=== PATIENT | male | born 1950 | race Two or more races ===

== ENCOUNTER 2022-06-09 05:20 | Inpatient (IN) | payer OTHER, MEDICAID ==
[~2022-06-09] VITALS: Ht 165.1 cm; Wt 69.8 kg
[2022-06-09 05:57] LABS: Basophils # (auto) 0 10 ^3/uL (0-0.2); Basophils % (auto) 0.5 % (0.0-2.0); Eosinophils # (auto) 0.3 10 ^3/uL (0-0.8); Eosinophils % (auto) 3.7 % (0.0-7.0); Hematocrit 46.1 % (41.0-53.0); Hemoglobin 15.8 g/dL (13.5-17.5); Lymphocytes % (auto) 41.2 % (10.0-50.0); Mean Corpuscular Hemoglobin 29.5 pg (28.0-32.0); Mean Corpuscular Hgb Conc. 34.4 g/dL (32.0-36.0); Mean Corpuscular Volume 85.7 fL (80.0-100.0); Monocytes # (auto) 0.4 10 ^3/uL (0-1.3); Monocytes % (auto) 5.8 % (0.0-12.0); Neutrophils # (auto) 3.5 10 ^3/uL (1.6-8.6); Neutrophils % (auto) 48.8 % (37.0-80.0); Nucleated Red Blood Cells % 0.1 %; Red Blood Cells 5.38 10^6/uL (4.5-5.90); Red Cell Distribution Width 13.6 % (11.8-14.3); White Blood Cell 7.2 10^3/uL (4.4-10.8)
[2022-06-09 06:16] LABS: Albumin 3.5 g/dL (3.4-5.0); Calcium 8.5 mg/dL (8.5-10.1)
[2022-06-09 06:20] LABS: BUN/Creatinine Ratio 16.2; Bilirubin, Total 0.6 mg/dL (0.2-1.0); Total Protein 6.8 g/dL (6.4-8.2)
[2022-06-09] MEDS ORDERED: SODIUM CHLORIDE 0.9% 1,000 ML IV ONE ×2 (06:30→06:45)
[2022-06-09] MEDS ORDERED: ASPirin 81 mg TAB PO ONE (06:30)
[2022-06-09] MEDS ORDERED: NITROGLYCERIN 0.4 MG SL TAB SL ONE (06:45)
[2022-06-09 07:05] LABS: INR 0.99 (0.9-1.15); Partial Thromboplastin Time 27.9 sec (24.6-33.4)
[2022-06-09] MEDS ORDERED: ENOXAPARIN SOD 60 MG/0.6 ML SYRINGE SC ONE (07:30)
[2022-06-09 08:28] LABS: Urine Bacteria NONE SEEN /hpf (None Seen); Urine Blood Negative /uL (Negative); Urine Hyaline Cast FEW /lpf (0 - 2); Urine Specific Gravity 1.024 (1.001-1.035); Urine WBC 2 /hpf (0 - 3)
[2022-06-09] MEDS ORDERED: HEPARIN DRIP/D5W 100UNITS/ML 250 ML IV SCH (11:45)
[2022-06-09] MEDS ORDERED: CLOPIDOGREL 300 MG TAB PO ONE (11:45)
[2022-06-09] MEDS ORDERED: NITROGLYCERIN 50MG/250ML 250 ML IV ONE (11:45)
[2022-06-09] MEDS ORDERED: MORPHINE SULFATE INJ 2 MG/ml SYRG IV PRN (11:45)
[2022-06-09 14:05] LABS: INR 1.02 (0.9-1.15); Partial Thromboplastin Time 29.4 sec (24.6-33.4)
[2022-06-09] MEDS ORDERED: EPTIFIBATIDE INJ (2MG/ML) 10ML VIAL IV ONE (15:15)
[2022-06-09] MEDS: EPTIFIBATIDE DRIP(0.75MG/ML) 100 ML IV SCH (16:07)
[2022-06-09 20:00] LABS: INR 1.08 (0.9-1.15)
[2022-06-09] MEDS: ATORVASTATIN 20 MG TAB PO SCH (22:05)
[2022-06-10] VITALS (13 sets, daily range): BP systolic 94–130; BP diastolic 60–85
[2022-06-10] MEDS: EPTIFIBATIDE DRIP(0.75MG/ML) 100 ML IV SCH ×2 (00:26→08:08)
[2022-06-10 03:50] LABS: INR 1.03 (0.9-1.15); Partial Thromboplastin Time 59.5 sec (24.6-33.4)
[2022-06-10 05:35] LABS: Basophils # (auto) 0.1 10 ^3/uL (0-0.2); Eosinophils # (auto) 0.1 10 ^3/uL (0-0.8); Eosinophils % (auto) 1.5 % (0.0-7.0); Hematocrit 42.4 % (41.0-53.0); Hemoglobin 14.6 g/dL (13.5-17.5); Lymphocytes # (auto) 1.7 10 ^3/uL (0.4-5.4); Lymphocytes % (auto) 22.9 % (10.0-50.0); Mean Corpuscular Hemoglobin 29.3 pg (28.0-32.0); Mean Corpuscular Hgb Conc. 34.5 g/dL (32.0-36.0); Mean Corpuscular Volume 84.8 fL (80.0-100.0); Monocytes # (auto) 0.6 10 ^3/uL (0-1.3); Monocytes % (auto) 7.6 % (0.0-12.0); Neutrophils # (auto) 4.9 10 ^3/uL (1.6-8.6); Red Cell Distribution Width 13.5 % (11.8-14.3); White Blood Cell 7.3 10^3/uL (4.4-10.8)
[2022-06-10 05:47] LABS: BUN/Creatinine Ratio 17.6; Calcium 8.2 mg/dL (8.5-10.1); Potassium 3.7 mmol/L (3.5-5.1)
[2022-06-10] MEDS ORDERED: HEPARIN SODIUM (PORCINE) 5000 UNITS/ML 1ML VIAL ONE ×2 (09:30→10:21)
[2022-06-10] MEDS ORDERED: ANGIOMAX 250 MG VIAL IV ONE (09:30)
[2022-06-10] MEDS ORDERED: VERAPAMIL 2.5MG/ML INJ 2ML VIAL IV ONE (09:31)
[2022-06-10] MEDS ORDERED: fentaNYL CITRATE 100 MCG/2 ML VL ONE (09:31)
[2022-06-10] MEDS ORDERED: SODIUM CHL 0.9% 0 ML ONE ×2 (09:31→09:53)
[2022-06-10] MEDS ORDERED: MIDAZOLAM HCL 2MG/2ML 2ml VIAL (1mg/ml) ONE (09:31)
[2022-06-10] MEDS ORDERED: IODIXANOL 320MG/ML 100ML BTL IV ONE ×3 (09:35→10:51)
[2022-06-10] MEDS ORDERED: LIDOCAINE 2%HCL (LOCAL ANESTH.) INJ 20ML MDV ONE (09:35)
[2022-06-10] MEDS ORDERED: NITROGLYCERIN 5MG/ML 10ML VIAL IV ONE (09:52)
[2022-06-10] MEDS: ASPirin 81 mg TAB PO SCH (10:00)
[2022-06-10] MEDS ORDERED: ASPirin 81 mg TAB PO SCH (10:00)
[2022-06-10] MEDS: CLOPIDOGREL BISULFATE 75 MG TAB PO SCH (10:00)
[2022-06-10] MEDS ORDERED: CLOPIDOGREL BISULFATE 75 MG TAB ONE (12:01)
[2022-06-10] MEDS ORDERED: ASPirin 81 mg TAB ONE (12:02)
[2022-06-10] MEDS ORDERED: NITROGLYCERIN 0.4 MG SL TAB SL PRN (13:00)
[2022-06-10] MEDS ORDERED: MORPHINE SULFATE INJ 2 MG/ml SYRG IV PRN (13:00)
[2022-06-10] MEDS ORDERED: traMADol HCL 50 MG TAB PO PRN (20:45)
[2022-06-10] MEDS: ATORVASTATIN 20 MG TAB PO SCH (22:07)
[2022-06-10] MEDS: SACUBITRIL-VALSARTAN 24mg/26mg TAB PO SCH (22:07)
[2022-06-11 05:00] VITALS: BP 102/71
[2022-06-11 07:32] LABS: Basophils # (auto) 0 10 ^3/uL (0-0.2); Basophils % (auto) 0.5 % (0.0-2.0); Eosinophils # (auto) 0.1 10 ^3/uL (0-0.8); Eosinophils % (auto) 0.9 % (0.0-7.0); Hematocrit 43.6 % (41.0-53.0); Lymphocytes # (auto) 2.1 10 ^3/uL (0.4-5.4); Lymphocytes % (auto) 24.2 % (10.0-50.0); Mean Corpuscular Hemoglobin 29.3 pg (28.0-32.0); Mean Corpuscular Hgb Conc. 34.4 g/dL (32.0-36.0); Mean Corpuscular Volume 85.2 fL (80.0-100.0); Monocytes # (auto) 0.9 10 ^3/uL (0-1.3); Monocytes % (auto) 10.6 % (0.0-12.0); Neutrophils # (auto) 5.6 10 ^3/uL (1.6-8.6); Neutrophils % (auto) 63.8 % (37.0-80.0); Nucleated Red Blood Cells % 0.1 %; Red Blood Cells 5.12 10^6/uL (4.5-5.90); Red Cell Distribution Width 13.4 % (11.8-14.3); White Blood Cell 8.7 10^3/uL (4.4-10.8)
[2022-06-11 07:39] LABS: Albumin 3.1 g/dL (3.4-5.0); BUN/Creatinine Ratio 11.4; Calcium 8.3 mg/dL (8.5-10.1); Potassium 3.6 mmol/L (3.5-5.1)
[2022-06-11 07:41] LABS: Bilirubin, Total 1.5 mg/dL (0.2-1.0)
[2022-06-11 08:34] LABS: Cholesterol 121 mg/dL (< 200); HDL Cholesterol 33 mg/dL (40-59); LDL Cholesterol 89 mg/dL (< 100); Triglycerides 107 mg/dL (< 150)
[2022-06-11] MEDS ORDERED: NITR0.4S29 SL (09:46)
[2022-06-11] MEDS ORDERED: ASPI-325 PO (09:46)
[2022-06-11] MEDS ORDERED: SACU1TAB PO (09:46)
[2022-06-11] MEDS ORDERED: ATOR20TA50 PO (09:46)
[2022-06-11] MEDS ORDERED: CLOP75TA70 PO (09:46)
[2022-06-11] MEDS: SACUBITRIL-VALSARTAN 24mg/26mg TAB PO SCH (10:06)
[2022-06-11] MEDS: ASPirin 81 mg TAB PO SCH (10:07)
[2022-06-11] MEDS: CLOPIDOGREL BISULFATE 75 MG TAB PO SCH (10:07)
== END 2022-06-11 13:15 | disposition home or self-care (01) | DRG 246 ==
LOC: ER 05:20 → TELE 11:55 → OBSVTOIN 06-10 02:30 → TELE-CENTR 06-10 16:13
PROVIDERS: ADMIT Internal Medicine; ATTEND Internal Medicine
PROC: 4A023N7 Measurement of Cardiac Sampling and Pressure, Left Heart, Percutaneous Approach (ICD-10-PCS; principal; 2022-06-10)
PROC: 027135Z Dilation of Coronary Artery, Two Arteries with Two Drug-eluting Intraluminal Devices, Percutaneous Approach (ICD-10-PCS; 2022-06-10)
PROC: B211YZZ Fluoroscopy of Multiple Coronary Arteries using Other Contrast (ICD-10-PCS; 2022-06-10)
PROC: B215YZZ Fluoroscopy of Left Heart using Other Contrast (ICD-10-PCS; 2022-06-10)
PROC: 4A033BC Measurement of Arterial Pressure, Coronary, Percutaneous Approach (ICD-10-PCS; 2022-06-10)
PROC: 02JA3ZZ Inspection of Heart, Percutaneous Approach (ICD-10-PCS; 2022-06-10)
DX: I21.4 Non-ST elevation (NSTEMI) myocardial infarction (principal); I50.21 Acute systolic (congestive) heart failure; I24.9 Acute ischemic heart disease, unspecified; F10.90 Alcohol use, unspecified, uncomplicated; Y90.9 Presence of alcohol in blood, level not specified; I11.0 Hypertensive heart disease with heart failure; I25.5 Ischemic cardiomyopathy; R73.03 Prediabetes
CPT/HCPCS: 36415; 71046; 80048; 80053; 80061; 81001; 83036; 83735; 83880; 84443; 84484; 85025; 85379; 85610; 85730; 87426; 92928; 93005; 93306; 93458; 93571; 96361; 96365; 96368; 96372; 96375; 96376; 99152; 99153; 99291; C1874; C1887; G0378; J2250; J3490; Q9967